=== PATIENT | male | born 1940 | race African-American/Black ===

== ENCOUNTER → 2016-09-12 | Outpatient (CLI) | payer OTHER, BC ==
[~2016-09-12] MED LIST: ASPIRIN325 MG PO; Ascorbic Acid,Ester- PO; COZAAR100 MG PO; DITROPAN5 MG PO; FLOMAX0.4 M1; Flomax PO; LASIX10 MG; LOMOTIL TABLET1 EACH PO; LOPRESSOR25 MG PO; LOVENOX30 MG/0.3 SC; LUPRON DEPOT45 MG IM; Miralax, Glycolax PO; OxyCONTIN PO; Percocet 5/325,Endoc PO; Protonix PO; SENOKOT S,PE1 TABLET PO; SIMVASTATIN40 M1; THERAGRAN1 TABLET PO; TOPROL XL100 MG PO; Tylenol Regular Stre PO; ZOLPIDEM TART6.25 MG PO; Zocor PO
== END | disposition home or self-care (01) ==
DX: M16.12 Unilateral primary osteoarthritis, left hip (principal); R26.2 Difficulty in walking, not elsewhere classified; M62.81 Muscle weakness (generalized); M25.652 Stiffness of left hip, not elsewhere classified
CPT/HCPCS: 97110 GP; 97150 GO; 97161 GP; 97165 GO; G8978 GP; G8979 GP; G8980 GP; G8987 GO; G8988 GO; G8989 GO

== ENCOUNTER 2016-10-30 05:39 | Inpatient (IN) | payer OTHER, BC ==
[~2016-10-30] VITALS: Ht 181.6 cm; Wt 124.5 kg
[~2016-10-30 05:39] MED LIST changes: +IRON325 M1 PO
[2016-10-30 06:32] VITALS: BP 122/76
[2016-10-30 11:40] VITALS: BP 113/70
[2016-10-30 11:42] LABS: HEMATOCRIT 32.1 % (38.0-50.0); MCH 28.8 PG (29.0-34.0); MCHC 32.4 G/DL (30.0-36.0); MCV 88.9 FL (86-99); MEAN PLAT.VOLUME 10.7 uM^3 (9.0-12.4); PLATELET COUNT 210 K/uL (156-360); RBC DIS.WIDTH-CV 13.9 % (11.8-14.6); RBC DIS.WIDTH-SD 45.2 % (39-53); WHITE BLOOD COUNT 8.8 K/uL (4.1-10.2)
[2016-10-30 11:46] LABS: RED BLOOD COUNT 3.61 M/uL (4.00-5.50)
[2016-10-30 15:36] VITALS: BP 134/76
[2016-10-30 20:06] VITALS: BP 148/74
[2016-10-31] VITALS (8 sets, daily range): BP systolic 90–162; BP diastolic 55–91
[2016-10-31 05:49] LABS: HEMATOCRIT 35.7 % (38.0-50.0); MCH 28.6 PG (29.0-34.0); MCHC 32.8 G/DL (30.0-36.0); MCV 87.3 FL (86-99); MEAN PLAT.VOLUME 10.6 uM^3 (9.0-12.4); PLATELET COUNT 238 K/uL (156-360); RBC DIS.WIDTH-CV 13.9 % (11.8-14.6); RBC DIS.WIDTH-SD 44.2 % (39-53); RED BLOOD COUNT 4.09 M/uL (4.00-5.50); WHITE BLOOD COUNT 10.1 K/uL (4.1-10.2)
[2016-10-31 06:25] LABS: ANION GAP 9 MEQ/L (2-14); CHLORIDE 100 MEQ/L (99-109); GFR ESTIMATE (CALCULATED) > 59 mL/min/; GLUCOSE 143 mg/dL (70-99); POTASSIUM 4.4 MEQ/L (3.7-5.4); SAMPLE HEMOLYSIS CHECK 0; SAMPLE ICTERIC CHECK 0; SAMPLE LIPEMIA CHECK 0; SODIUM 135 MEQ/L (136-147); UREA NITROGEN (BUN) 16 mg/dL (9-23)
[2016-10-31 11:23] LABS: TROP-I INTERPRETATION NEGATIVE; TROPONIN-I < 0.01 ng/mL (0.0-0.30)
[2016-10-31 16:26] LABS: TROP-I INTERPRETATION NEGATIVE; TROPONIN-I 0.01 ng/mL (0.0-0.30)
[2016-11-01 00:30] VITALS: BP 113/73
[2016-11-01 04:20] VITALS: BP 101/54
[2016-11-01 07:30] VITALS: BP 110/62
[2016-11-01] MEDS ORDERED: IRON325 M1 PO (08:52)
[2016-11-01] MEDS ORDERED: LOVENOX40 MG/0.4 SC (08:53)
[2016-11-01] MEDS ORDERED: ENDOCET 5-3251 EACH PO (08:53)
[2016-11-01] MEDS ORDERED: CELECOXIB200 MG PO (08:53)
[2016-11-01 10:39] LABS: ANION GAP 14 MEQ/L (2-14); CHLORIDE 101 MEQ/L (99-109); GFR ESTIMATE (CALCULATED) 51 mL/min/; GLUCOSE 109 mg/dL (70-99); POTASSIUM 4.3 MEQ/L (3.7-5.4); SAMPLE HEMOLYSIS CHECK 0; SAMPLE ICTERIC CHECK 0; SAMPLE LIPEMIA CHECK 0; SODIUM 136 MEQ/L (136-147); UREA NITROGEN (BUN) 23 mg/dL (9-23)
[2016-11-01 11:53] VITALS: BP 95/51
[2016-11-01 15:56] VITALS: BP 115/66
[2016-11-01] MEDS ORDERED: PRAVASTATIN SOD80 MG PO (19:03)
[2016-11-02] MEDS ORDERED: FLOMAX0.4 MG PO (15:47)
== END 2016-11-01 16:40 | DRG 470 ==
LOC: 2SOUTH 05:39 → 3WEST 11:32 → 2SOUTH 12:26 → 3WEST 11-01 16:40
PROVIDERS: Internal Medicine; Orthopaedic Surgery; Physician Assistant
PROC: 0SRB02A Replacement of Left Hip Joint with Metal on Polyethylene Synthetic Substitute, Uncemented, Open Approach (ICD-10-PCS; principal; 2016-10-30)
DX: M16.12 Unilateral primary osteoarthritis, left hip (principal); I10 Essential (primary) hypertension; E78.5 Hyperlipidemia, unspecified; F41.9 Anxiety disorder, unspecified; E66.9 Obesity, unspecified; I95.9 Hypotension, unspecified; R00.0 Tachycardia, unspecified; Z88.0 Allergy status to penicillin; Z68.37 Body mass index [BMI] 37.0-37.9, adult; Z85.46 Personal history of malignant neoplasm of prostate; Z87.891 Personal history of nicotine dependence; Z82.49 Family history of ischemic heart disease and other diseases of the circulatory system; Z80.9 Family history of malignant neoplasm, unspecified
CPT/HCPCS: 71020; 73502; 78582; 80048; 84484; 85027; 93005; A9540; A9567; J1650; J2250; J3010; J7030; J7050

== ENCOUNTER 2016-11-01 11:09 | Inpatient (IN) | payer OTHER, BC ==
[~2016-11-01] VITALS: Ht 180.3 cm; Wt 125.1 kg
[~2016-11-01 11:09] MED LIST changes: +CELECOXIB200 MG PO; +ENDOCET 5-3251 EACH PO; +LOVENOX40 MG/0.4 SC
[2016-11-01 16:45] VITALS: BP 115/66
[2016-11-01] MEDS ORDERED: PRAVASTATIN SOD80 MG PO (19:03)
[2016-11-02] VITALS: BP 133/61
[2016-11-02 05:06] LABS: HEMATOCRIT 32.1 % (38.0-50.0); MCH 28.7 PG (29.0-34.0); MCHC 32.7 G/DL (30.0-36.0); MCV 87.7 FL (86-99); MEAN PLAT.VOLUME 9.9 uM^3 (9.0-12.4); PLATELET COUNT 224 K/uL (156-360); RBC DIS.WIDTH-CV 13.9 % (11.8-14.6); RBC DIS.WIDTH-SD 44.7 % (39-53); RED BLOOD COUNT 3.66 M/uL (4.00-5.50); WHITE BLOOD COUNT 10.8 K/uL (4.1-10.2)
[2016-11-02 05:14] LABS: CHLORIDE 104 mEq/L (99-109); POTASSIUM 4.9 mEq/L (3.7-5.4); SODIUM 137 mEq/L (136-147)
[2016-11-02 05:15] VITALS: BP 120/53
[2016-11-02 05:17] LABS: GLUCOSE 139 mg/dL (70-99)
[2016-11-02 05:18] LABS: ANION GAP 8 MEQ/L (2-14)
[2016-11-02 05:19] LABS: TOTAL BILIRUBIN 0.5 mg/dL (0.0-1.0)
[2016-11-02 05:20] LABS: ALKALINE PHOSPHATASE 47 IU/L (3-129); GFR ESTIMATE (CALCULATED) 55 mL/min/
[2016-11-02 05:21] LABS: UREA NITROGEN (BUN) 26 mg/dL (9-23)
[2016-11-02 15:45] VITALS: BP 119/58
[2016-11-02] MEDS ORDERED: FLOMAX0.4 MG PO (15:47)
[2016-11-03 05:11] VITALS: BP 99/53
[2016-11-03 15:37] VITALS: BP 104/57
[2016-11-04 06:14] VITALS: BP 119/60
[2016-11-04 15:10] VITALS: BP 112/50
[2016-11-05 06:11] VITALS: BP 131/66
[2016-11-05 15:43] VITALS: BP 121/60
[2016-11-06 05:44] VITALS: BP 137/69
[2016-11-06 14:48] VITALS: BP 140/66
[2016-11-07 05:02] VITALS: BP 139/70
[2016-11-07 06:28] LABS: GFR ESTIMATE (CALCULATED) > 59 mL/min/
[2016-11-07 15:32] VITALS: BP 91/50
[2016-11-07 16:10] VITALS: BP 105/61
[2016-11-08 05:44] VITALS: BP 115/58
[2016-11-08 16:09] VITALS: BP 90/55
[2016-11-08 16:53] LABS: HEMATOCRIT 30.4 % (38.0-50.0); MCH 29.1 PG (29.0-34.0); MCHC 32.9 G/DL (30.0-36.0); MCV 88.4 FL (86-99); MEAN PLAT.VOLUME 9.5 uM^3 (9.0-12.4); PLATELET COUNT 409 K/uL (156-360); RBC DIS.WIDTH-CV 14.1 % (11.8-14.6); RBC DIS.WIDTH-SD 45.6 % (39-53); RED BLOOD COUNT 3.44 M/uL (4.00-5.50); WHITE BLOOD COUNT 9.9 K/uL (4.1-10.2)
[2016-11-08 17:02] LABS: CHLORIDE 105 mEq/L (99-109); POTASSIUM 4.5 mEq/L (3.7-5.4); SODIUM 137 mEq/L (136-147)
[2016-11-08 17:03] LABS: GLUCOSE 110 mg/dL (70-99)
[2016-11-08 17:05] LABS: ANION GAP 8 MEQ/L (2-14)
[2016-11-08 17:07] LABS: GFR ESTIMATE (CALCULATED) > 59 mL/min/
[2016-11-08 17:08] LABS: UREA NITROGEN (BUN) 24 mg/dL (9-23)
[2016-11-08 17:26] VITALS: BP 104/56
[2016-11-09 06:44] VITALS: BP 105/56
[2016-11-09] MEDS ORDERED: ASCORBIC ACID500 M3 PO (08:08)
[2016-11-09] MEDS ORDERED: POLYETHYLENE GL17 GM PO (08:08)
[2016-11-09] MEDS ORDERED: FOLIC ACID1 MG PO (08:08)
[2016-11-09] MEDS ORDERED: THERAGRAN1 TABLET PO (08:08)
[2016-11-09] MEDS ORDERED: SENNA PLUS TAB1 EACH PO (08:08)
[2016-11-09] MEDS ORDERED: FLORASTOR250 MG PO (08:08)
[2016-11-09] MEDS ORDERED: KEFLEX500 MG PO (08:10)
[2016-11-09] MEDS ORDERED: BACTRIM,SEPT1 TABLET PO (08:10)
== END 2016-11-09 12:21 | disposition home health service (06) | DRG 560 ==
LOC: 3WEST 11:09
PROVIDERS: Physical Medicine & Rehabilitation Pain Medicine
PROC: F07M0ZZ Range of Motion and Joint Mobility Treatment of Musculoskeletal System - Whole Body (ICD-10-PCS; principal; 2016-11-01)
DX: Z47.1 Aftercare following joint replacement surgery (principal); R26.2 Difficulty in walking, not elsewhere classified; D62 Acute posthemorrhagic anemia; E87.1 Hypo-osmolality and hyponatremia; L03.317 Cellulitis of buttock; L02.31 Cutaneous abscess of buttock; Z96.642 Presence of left artificial hip joint; G89.18 Other acute postprocedural pain; I10 Essential (primary) hypertension; E78.5 Hyperlipidemia, unspecified; E66.9 Obesity, unspecified; G47.00 Insomnia, unspecified; K59.00 Constipation, unspecified; M54.5 Low back pain; M47.818 Spondylosis without myelopathy or radiculopathy, sacral and sacrococcygeal region; M85.80 Other specified disorders of bone density and structure, unspecified site; Z60.2 Problems related to living alone; Z68.38 Body mass index [BMI] 38.0-38.9, adult; Z85.46 Personal history of malignant neoplasm of prostate; Z87.891 Personal history of nicotine dependence; Z88.0 Allergy status to penicillin; Z83.3 Family history of diabetes mellitus; Z82.49 Family history of ischemic heart disease and other diseases of the circulatory system; Z80.9 Family history of malignant neoplasm, unspecified
CPT/HCPCS: 73700; 80048; 80053; 80202; 82565; 85027; 97110 GO; 97530 GP; J0696; J1650; J3370; J7050